=== PATIENT | female | born 1955 | race Caucasian/White ===

== ENCOUNTER 2019-06-13 11:34 | Emergency (ER) | payer BC ==
[~2019-06-13] VITALS: Ht 167.6 cm; Wt 90.7 kg
[2019-06-13 12:10] VITALS: BP 161/105
[2019-06-13] MEDS ORDERED: LIDOCAINE HCL/MPF 1% 30 ML VIAL IJ ONE (12:22)
[2019-06-13] MEDS ORDERED: LIDOCAINE HCL/PF 1% 30 ML VIAL TP ONE (12:30)
--- NOTE | 2019-06-13 13:37 | NUR ---
Laceration repair on left index finger done by provider. NO active bleeding. Dressing applied-Patient discharged to home in stable condition. Written and verbal after care instructions given. Patient verbalizes understanding of instruction.
== END 2019-06-13 13:44 | disposition home or self-care (01) ==
LOC: ER 11:41
DX: S61.211A Laceration without foreign body of left index finger without damage to nail, initial encounter (principal); W26.0XXA Contact with knife, initial encounter; Y93.89 Activity, other specified; Y92.89 Other specified places as the place of occurrence of the external cause; Y99.8 Other external cause status
CPT/HCPCS: 12001; 99283; J3490 ×2